=== PATIENT | female | born 1960 | race Two or more races ===

== ENCOUNTER 2020-08-21 00:45 | Emergency (ER) | payer OTHER ==
[~2020-08-21] VITALS: Ht 154.9 cm; Wt 73.9 kg
[2020-08-21] MEDS ORDERED: ONDANSETRON ODT 4 MG ONE (01:25)
[2020-08-21 01:27] LABS: BASOPHILS % (AUTO) 1 % (0-1); EOSINOPHILS % (AUTO) 3 % (1-7); LYMPHOCYTES % (AUTO) 15 % (22-44); MEAN CORPUSCULAR HEMOGLOBIN 30.1 pg (27.0-34.8); MEAN PLATELET VOLUME 8.4 fL (7.4-10.4); MONOCYTES % (AUTO) 6 % (2-9); NEUTROPHILS % (AUTO) 75 % (42-75); PLATELET COUNT 274 x10^3/uL (130-400); RED BLOOD COUNT 4.78 x10^6/uL (3.82-5.3)
[2020-08-21] MEDS ORDERED: ONDANSETRON ODT 4 MG PO ONE (01:30)
[2020-08-21 01:32] LABS: MD NO
[2020-08-21 01:35] LABS: ALANINE AMINOTRANSFERASE 22 U/L (12-78); ANION GAP 3 mmol/L (5-15); CALCIUM 9.4 mg/dL (8.5-10.1); CHLORIDE 107 mmol/L (98-107)
[2020-08-21 01:40] LABS: ALKALINE PHOSPHATASE 112 U/L (45-117); BILIRUBIN,TOTAL 0.3 mg/dL (0.2-1.0); TOTAL PROTEIN 8.6 g/dL (6.4-8.2); TROPONIN I < 0.015 ng/mL (0.000-0.045)
[2020-08-21 01:44] VITALS: BP 164/95
[2020-08-21 01:48] LABS: MICROSCOPIC AUTO
--- NOTE | 2020-08-21 02:47 | NUR ---
Patient/Caregiver given discharge instructions and they have confirmed that they understand the instructions. Patient ambulatory with steady gait.
== END 2020-08-21 03:20 | disposition home or self-care (01) ==
LOC: ED 02:58
DX: R10.84 Generalized abdominal pain (principal); R11.0 Nausea; I10 Essential (primary) hypertension; Z90.710 Acquired absence of both cervix and uterus
CPT/HCPCS: 36415; 80053; 81001; 83690; 84484; 85025; 99283; Q0162